=== PATIENT | female | born 1945 | race Caucasian/White ===

== ENCOUNTER 2017-06-09 08:26 | Emergency (ER) | payer MEDICARE, OTHER ==
[~2017-06-09] VITALS: Ht 152.4 cm; Wt 55.0 kg
[~2017-06-09 08:26] MED LIST: ANTISOL30 LEFT EAR; LORT5TAB PO; OSEL75 PO; PROM25SU8 PO; SIMV5TAB32 PO; TAB-TAB PO; VAGI25TA4 PV; ZITHTAB6 PO
[2017-06-09 08:35] VITALS: BP 126/61; PULSE 68; RESP 16; TEMP 98.8; O2SAT 96
--- NOTE | 2017-06-09 09:07 | PD ---
HPI Chief Complaint: Cold / Flu Symptoms Time Seen by Provider: 08:57 Travel History International Travel<30 days: No Contact w/Intl Traveler<30days: No Traveled to known affect area: No History of Present Illness HPI Patient comes to the emergency department complaining of cold and flulike symptoms began less than 48 hours ago. Patient reports nonproductive cough, subjective fevers yesterday, sore throat, nausea, one episode of nonbilious nonbloody vomiting yesterday, headache, generalized body aches. Patient denies taking anything for this today. Reports she has been taking her Phenergan along with Tylenol for symptomatic relief. Eating or drinking anything makes her nausea worse. Denies any radiation of pain. Denies any chest pain, shortness of breath, abdominal pain, loss/change in bowel or bladder, or neck pain. Patient reports a history of lung cancer with a right upper lobectomy. PFSH Past Medical History Anemia: Yes Arthritis: Yes Heart Rhythm Problems: Yes ("HEART MURMUR") Cancer: Yes (RIGHT UPPER LOBE) Cardiac Catheterization: Yes (2013) High Cholesterol: Yes Chemotherapy: Yes COPD: Yes (EMPHYSEMA) Menopausal: Yes : 3 Para: 2 Miscarriage: 1 Past Surgical History Appendectomy: Yes Ear Surgery: Yes (LEFT EAR TUBES: CURRENTLY OUT 03/2014) Eye Surgery: Yes (BILATERAL CATARACT) Hysterectomy: Yes Thoracic Surgery: Yes (RIGHT UPPER LOBECTOMY: 02/18/2014) Tonsillectomy: Yes Other Surgery: Yes (SINUS) Social History Alcohol Use: Yes (OCCASIONALLY) Tobacco Use: No Substance Use: No Allergies-Medications (Allergen,Severity, Reaction): Coded Allergies: No Known Allergies (Verified Adverse Reaction, Unknown, 06/09/17) Reported Meds & Prescriptions Reported Meds & Active Scripts Active Phenergan (Promethazine HCl) 25 Mg Tablet 25 Mg PO Q6H PRN Tamiflu (Oseltamivir Phosphate) 75 Mg Cap 75 Mg PO BID 5 Days Tamiflu 75 mg (Oseltamivir Phosphate) 75 Mg Cap 75 Mg PO BID 5 Days Antipyrine/Benzocaine Otic (Benzocaine/Antipyrine) 10 Ml Soln 4 Drop LEFT EAR Q6HPRN Promethazine Hcl (Promethazine HCl) 25 Mg Tab 25 Mg PO Q6-8HPRN FOR NAUSEA/VOMITING Lortab 5/500 (Acetaminophen/Hydrocodone Bitart) 5 Mg/500 Mg Tab 1-2 Tab PO Q4- 6HPRN FOR PAIN Zithromax Tri-Chava (Azithromycin) Tab 500 Mg PO DIRECTED 3 Days 1 TAB (500 MG) PO DAILY FOR 3 DAYS. Reported Multivitamin (Multivitamins) 1 Tab Tab 1 Tab PO DAILY Vagifem (Estradiol) 25 Mcg Tab 25 Mcg PV Zocor (Simvastatin) 5 Mg Tab 0 PO UNKNOWN DOSE Review of Systems Except as stated in HPI: all other systems reviewed are Neg Physical Exam Narrative GENERAL: Well-developed, well nourished, in no acute distress, and non-ill appearing. SKIN: Focused skin assessment warm and dry. HEAD: Atraumatic. Normocephalic. EYES: Pupils equal and round. EOMI. No scleral icterus. No injection or drainage. ENT: No nasal bleeding or discharge. Mucous membranes pink and moist. Tympanic membranes pearly feldman bilaterally. Posterior pharynx nonerythematous without exudate. Uvula is midline. No tenderness to facial sinuses to palpation. NECK: Trachea midline. No cervical lymphadenopathy. Supple. No nuclear rigidity. CARDIOVASCULAR: Regular rate and rhythm. No murmur appreciated. RESPIRATORY: No accessory muscle use. No respiratory distress. Clear to auscultation. Breath sounds equal bilaterally. No cough noted on exam. Patient speaking in full sentences without difficulty. GASTROINTESTINAL: Abdomen soft, non-tender, nondistended, and no guarding. Hepatic and splenic margins not palpable. Normal bowel sounds x4. No pulsatile mass. MUSCULOSKELETAL: No obvious deformities. No clubbing. No cyanosis. No edema. Full range of motion. NEUROLOGICAL: Awake and alert. No obvious cranial nerve deficits. Motor grossly within normal limits. Normal speech. PSYCHIATRIC: Appropriate mood and affect; insight and judgment normal. Data Data Last Documented VS Vital Signs Date Time Temp Pulse Resp B/P (MAP) Pulse Ox O2 Delivery O2 Flow Rate FiO2 06/09/17 08:35 98.8 68 16 126/61 (82) 96 Orders Orders Influenzae A/B Antigen (06/09/17 08:52) Group A Rapid Strep Screen (06/09/17 08:52) Urinalysis - C+S If Indicated (06/09/17 08:52) Chest, Single Ap (06/09/17 ) Strep Culture (Group A) (06/09/17 09:20) Ed Discharge Order (06/09/17 09:58) Labs Laboratory Tests Test 06/09/17 09:20 Urine Color YELLOW Urine Turbidity CLEAR Urine pH 6.0 Urine Specific [place] 1.017 Urine Protein NEG mg/dL Urine Glucose (UA) NEG mg/dL Urine Ketones NEG mg/dL Urine Occult Blood NEG Urine Nitrite NEG Urine Bilirubin NEG Urine Leukocyte Esterase NEG Urine RBC 0-3 /hpf Urine WBC 0-2 /hpf Urine Squamous Epithelial Cells 6-8 /hpf Urine Bacteria OCC /hpf Microscopic Urinalysis Comment CULT NOT INDICATED MDM Medical Decision Making Medical Screen Exam Complete: Yes Emergency Medical Condition: Yes Interpretation(s) Last Impressions Chest X-Ray 06/09/17 0000 Signed Impressions: Service Date/Time: Friday, June 09, 2017 09:10 - CONCLUSION: 1. No acute cardiopulmonary disease. 2. L1 compression fracture of unknown chronicity given the lack of recent prior examinations. If patient has pain on palpation of the spinous process, consider MRI examination to evaluate for bone marrow edema. Laron Salgado MD Differential Diagnosis Pneumonia, influenza, strep, UTI, URI, viral syndrome, bronchitis Narrative Course Patient reports compression fracture noted on x-ray is old and not new. Reports injury happened years ago. Patient looks great. Patients symptom complex is consistent with Influenza, or flu-like illness. The patient is tolerating fluids and is well hydrated. There is no evidence to suggest secondary infection (pneumonia, sepsis/bacteremia, etc.) at this time. I discussed with the patient, diagnosis, and plan of care and to follow up with the patients primary physician. Flu prep is positive. I discussed with the patient initiating Tamiflu and the patient agreed with plan. The patient was instructed to return if the worsens in anyway, especially if not tolerating fluids, increased pain or swelling, difficulty swallowing or breathing, or as needed. The patient agreed with plan. Chest X-ray was performed and negative for consolidation, pneumonia. Patient in no obvious distress upon re-evaluation. All pertinent laboratory/ Radiology result(s) discussed with patient/family. Patient was asked if they wanted to speak to my attending, which the patient did not wish to do at this time. Any questions/concerns in reference to patient diagnosis/condition discussed and clarified prior to patient's discharge. Reinforced sheer importance of close follow up with patient's primary physician or primary care clinic. Instructed patient to return to ED immediately, if symptoms return/ worsen. Patient showed understanding of above instructions. Further instructions and recommendations were detailed in discharge paperwork. Patient ambulated without difficulty out of ED at discharge. Diagnosis Primary Impression: Influenza B Referrals: [facility] Patient Instructions: General Instructions, Influenza (ED) Additional Instructions: Follow-up with your primary care physician in 3-5 days for reevaluation. Take all medication as prescribed. Use [id number] Tylenol for fever and pain control. Follow instructions in the packaging. Drink plenty of non- caffeinated nonalcoholic fluids. Return to the emergency department if symptoms get worse. Med/Other Pt SpecificInfo: Prescription(s) given Scripts Promethazine (Phenergan) 25 Mg Tablet 25 MG PO Q6H Y for NAUSEA OR VOMITING, #10 TAB 0 Refills Prov: Celso Jacob MD 06/09/17 Oseltamivir (Tamiflu) 75 Mg Cap 75 MG PO BID for Mgmt Viral Infection for 5 Days, #10 CAP 0 Refills Prov: Celso Jacob MD 06/09/17 Disposition: 01 DISCHARGE HOME Condition: Stable Fransisco Roe Jun 09, 2017 09:07
--- NOTE | 2017-06-09 09:29 | RADRPT ---
EXAM DATE/TIME: 06/09/2017 09:10 [facility] COMPARISON: CHEST SINGLE AP, April 09, 2014, 6:34. INDICATIONS : Cough MEDICAL HISTORY : Carcinoma, lung. SURGICAL HISTORY : None. ENCOUNTER: Initial ACUITY: 1 day PAIN SCORE: 0/10 LOCATION: chest FINDINGS: Diffuse interstitial prominence unchanged from prior exam. No new focal pleural or parenchymal opacit ies. Cardiomediastinal contours are within normal limits. Partially imaged lower cervical fusion hard [place]. Interval compression deformity of L1 vertebral body. CONCLUSION: 1. No acute cardiopulmonary disease. 2. L1 compression fracture of unknown chronicity given the lack of recent prior examinations. If linnette ent has pain on palpation of the spinous process, consider MRI examination to evaluate for bone marro w edema. Laron Salgado MD on June 09, 2017 at 9:25 Board Certified Radiologist. This report was verified electronically.
[2017-06-09 09:38] LABS: BILIRUBIN, URINE NEG (NEG); BLOOD, URINE NEG (NEG); GLUCOSE,URINE NEG (NEG); KETONE, URINE NEG (NEG); NITRITE,URINE NEG (NEG); URINE LEUKOCYTE ESTERASE NEG (NEG)
[2017-06-09] MEDS ORDERED: OSEL75 PO (09:53)
[2017-06-09 09:55] LABS: BACTERIA, URINE OCC /hpf; RBC, URINE 0-3 /hpf (0-3); URINE COLOR YELLOW (YELLW/STRAW); WBC, URINE 0-2 /hpf (0-5)
[2017-06-09] MEDS ORDERED: PROM25TA10 PO (09:56)
[2017-06-09 10:09] VITALS: BP 122/63
== END 2017-06-09 10:10 | disposition home or self-care (01) ==
LOC: PHEFT 08:26
DX: J10.1 Influenza due to other identified influenza virus with other respiratory manifestations (principal); M19.90 Unspecified osteoarthritis, unspecified site; E78.00 Pure hypercholesterolemia, unspecified; J44.9 Chronic obstructive pulmonary disease, unspecified; Z85.118 Personal history of other malignant neoplasm of bronchus and lung
CPT/HCPCS: 71045; 81001; 87081; 87804; 87880; 99284